=== PATIENT | female | born 1990 | race Caucasian/White ===

== ENCOUNTER 2018-08-28 00:28 | Inpatient (IN) | payer OTHER ==
[2018-08-28] MEDS ORDERED: PENDING SANTYL ORDER FOR WOUND CARE XX (03:30)
[2018-08-28] MEDS ORDERED: VANCOMYCIN IV PER PHARMACY XX ×2 (03:30→12:00)
[2018-08-28] MEDS ORDERED: ACETAMINOPHEN 325 MG TAB PO (03:30)
[2018-08-28] MEDS: SOD CHLORIDE 0.9% 1,000 ML IV ×3 (03:53→18:03)
[2018-08-28] MEDS: VANCOMYCIN HCL 1.25 GM in SOD CHLORIDE 0.9% 250 ML IVPB (04:25)
[2018-08-28] MEDS: PANTOPRAZOLE (EC) 40 MG TAB PO (06:09)
[2018-08-28 06:28] LABS: ADD MAN DIFF? NO
[2018-08-28 06:34] LABS: BASOPHILS % 0.3 % (0.0-2.0); EOSINOPHILS # 0.1 10^3/ul (0.0-0.5); EOSINOPHILS % 1.1 % (0.0-7.0); HEMATOCRIT 32.9 % (37.0-47.0); HEMOGLOBIN 10.5 g/dl (12.0-16.0); LYMPHOCYTES # 1.8 10^3/ul (0.8-2.9); LYMPHOCYTES % 14.7 % (15.0-51.0); MEAN CORPUSCULAR HEMOGLOBIN 26.3 pg (29.0-33.0); MEAN CORPUSCULAR HGB CONC 31.9 g/dl (32.0-37.0); MEAN CORPUSCULAR VOLUME 82.5 fl (82.0-101.0); MEAN PLATELET VOLUME 11.6 fl (7.4-10.4); MONOCYTE # 0.6 10^3/ul (0.3-0.9); MONOCYTES % 4.7 % (0.0-11.0); NEUTROPHIL # 9.5 10^3/ul (1.6-7.5); NEUTROPHILS % 78.7 % (39.0-77.0); PLATELET COUNT 243 10^3/UL (140-415); RED BLOOD COUNT 3.99 10^6/ul (4.20-5.40); RED CELL DISTRIBUTION WIDTH 16.5 % (11.5-14.5)
[2018-08-28 06:34] LABS: WHITE BLOOD COUNT 12.1 10^3/ul (4.8-10.8)
[2018-08-28 06:50] LABS: ALANINE AMINOTRANSFERASE 24 IU/L (13-69); ALBUMIN 3.7 g/dl (3.3-4.9); ALBUMIN/GLOBULIN RATIO 1.32; ALKALINE PHOSPHATASE 67 IU/L (42-121); ANION GAP 10 (5-13); ASPARTATE AMINO TRANSFERASE 19 IU/L (15-46); BILIRUBIN,INDIRECT 1.1 mg/dl (0-1.1); BILIRUBIN,TOTAL 1.1 mg/dl (0.2-1.3); BLOOD UREA NITROGEN 6 mg/dl (7-20); CALCIUM 8.9 mg/dl (8.4-10.2); CARBON DIOXIDE 25 mmol/L (21-31); CHLORIDE 103 mmol/L (97-110); CREATININE 0.46 mg/dl (0.44-1.00); Estimated GFR > 60 mL/min (>60); GLUCOSE 125 mg/dl (70-220); POTASSIUM 3.3 mmol/L (3.5-5.1); SODIUM 138 mmol/L (135-144); TOTAL PROTEIN 6.5 g/dl (6.1-8.1)
[2018-08-28] MEDS: ONDANSETRON 4 MG INJ IV (08:14)
[2018-08-28] MEDS: SOD CHLORIDE 0.9% 500 ML IV (08:24)
[2018-08-28] MEDS: CEFTRIAXONE 1 GM/50 ML (PMX) 50 ML IVPB (08:31)
[2018-08-28] MEDS ORDERED: QUETIAPINE 100 MG TAB PO (12:00)
[2018-08-28] MEDS ORDERED: traZODone 100 MG TAB PO (12:00)
[2018-08-28] MEDS: VANCOMYCIN 750 MG (PMX) 250 ML IVPB ×2 (13:38→22:20)
[2018-08-28] MEDS: NEOMYC/POLYMYX/BACIT 30 GM OINT TOP ×2 (14:23→20:30)
[2018-08-28] MEDS: LUBIPROSTONE 8 MCG CAPSULE PO ×2 (14:34→20:41)
[2018-08-28] MEDS: POTASSIUM CHLORIDE 20 MEQ POWDER FOR ORAL SOLN PO (14:34)
[2018-08-28] MEDS: POTASSIUM CHLORIDE (SR) 20 MEQ TAB PO (14:34)
[2018-08-28] MEDS: morphine 2 MG INJ IV (16:59)
[2018-08-28] MEDS: LORAZEPAM 2 MG INJ IV (20:30)
[2018-08-29] MEDS: PANTOPRAZOLE (EC) 40 MG TAB PO (05:29)
[2018-08-29 05:55] LABS: ADD MAN DIFF? NO
[2018-08-29 06:00] LABS: BASOPHILS % 0.4 % (0.0-2.0); EOSINOPHILS # 0.2 10^3/ul (0.0-0.5); HEMATOCRIT 34.2 % (37.0-47.0); LYMPHOCYTES # 1.8 10^3/ul (0.8-2.9); LYMPHOCYTES % 21.8 % (15.0-51.0); MEAN CORPUSCULAR HEMOGLOBIN 26.3 pg (29.0-33.0); MEAN CORPUSCULAR HGB CONC 32.2 g/dl (32.0-37.0); MEAN CORPUSCULAR VOLUME 81.6 fl (82.0-101.0); MEAN PLATELET VOLUME 11.2 fl (7.4-10.4); MONOCYTE # 0.5 10^3/ul (0.3-0.9); MONOCYTES % 5.9 % (0.0-11.0); NEUTROPHIL # 5.9 10^3/ul (1.6-7.5); NEUTROPHILS % 69.5 % (39.0-77.0); PLATELET COUNT 289 10^3/UL (140-415); RED BLOOD COUNT 4.19 10^6/ul (4.20-5.40); RED CELL DISTRIBUTION WIDTH 16.7 % (11.5-14.5)
[2018-08-29 06:00] LABS: WHITE BLOOD COUNT 8.4 10^3/ul (4.8-10.8)
[2018-08-29 06:44] LABS: ANION GAP 8 (5-13); BLOOD UREA NITROGEN 3 mg/dl (7-20); CARBON DIOXIDE 25 mmol/L (21-31); CHLORIDE 109 mmol/L (97-110); CREATININE 0.43 mg/dl (0.44-1.00); Estimated GFR > 60 mL/min (>60); GLUCOSE 106 mg/dl (70-220); POTASSIUM 3.9 mmol/L (3.5-5.1); SODIUM 142 mmol/L (135-144)
[2018-08-29] MEDS: SOD CHLORIDE 0.9% 1,000 ML IV ×4 (06:53→22:56)
[2018-08-29 07:28] LABS: VANCOMYCIN,TROUGH 7.6 ug/ml (10.0-20.0)
[2018-08-29] MEDS: CEFTRIAXONE 1 GM/50 ML (PMX) 50 ML IVPB (08:17)
[2018-08-29] MEDS: NEOMYC/POLYMYX/BACIT 30 GM OINT TOP ×2 (08:17→20:35)
[2018-08-29] MEDS: LUBIPROSTONE 8 MCG CAPSULE PO ×2 (08:20→20:35)
[2018-08-29] MEDS: VANCOMYCIN 750 MG (PMX) 250 ML IVPB (09:53)
[2018-08-29] MEDS: LORAZEPAM 0.5 MG TAB PO ×3 (10:30→20:33)
[2018-08-29] MEDS: morphine 2 MG INJ IV (11:19)
[2018-08-29] MEDS: DOCOSANOL 2 GM CREAM TOP ×2 (16:19→20:34)
[2018-08-29] MEDS: VANCOMYCIN 1 GM 250 ML IVPB (16:27)
[2018-08-29] MEDS: LORAZEPAM 2 MG INJ IV (17:11)
[2018-08-29] MEDS ORDERED: DOCOSANOL 2 GM CREAM TOP (21:00)
[2018-08-30] MEDS: VANCOMYCIN 1 GM 250 ML IVPB ×2 (00:18→09:08)
[2018-08-30] MEDS: SOD CHLORIDE 0.9% 1,000 ML IV (05:30)
[2018-08-30] MEDS: PANTOPRAZOLE (EC) 40 MG TAB PO (06:08)
[2018-08-30 06:51] LABS: ADD MAN DIFF? NO
[2018-08-30 06:57] LABS: WHITE BLOOD COUNT 9.8 10^3/ul (4.8-10.8)
[2018-08-30 06:57] LABS: BASOPHILS % 0.3 % (0.0-2.0); EOSINOPHILS # 0.2 10^3/ul (0.0-0.5); EOSINOPHILS % 1.8 % (0.0-7.0); HEMATOCRIT 36.2 % (37.0-47.0); HEMOGLOBIN 11.8 g/dl (12.0-16.0); LYMPHOCYTES # 2.1 10^3/ul (0.8-2.9); MEAN CORPUSCULAR HEMOGLOBIN 26.5 pg (29.0-33.0); MEAN CORPUSCULAR HGB CONC 32.6 g/dl (32.0-37.0); MEAN CORPUSCULAR VOLUME 81.3 fl (82.0-101.0); MEAN PLATELET VOLUME 11.1 fl (7.4-10.4); MONOCYTE # 0.6 10^3/ul (0.3-0.9); MONOCYTES % 6.2 % (0.0-11.0); NEUTROPHIL # 6.9 10^3/ul (1.6-7.5); NEUTROPHILS % 70.4 % (39.0-77.0); PLATELET COUNT 321 10^3/UL (140-415); RED BLOOD COUNT 4.45 10^6/ul (4.20-5.40); RED CELL DISTRIBUTION WIDTH 16.1 % (11.5-14.5)
[2018-08-30 07:45] LABS: ANION GAP 10 (5-13); BLOOD UREA NITROGEN 4 mg/dl (7-20); CALCIUM 9.1 mg/dl (8.4-10.2); CARBON DIOXIDE 25 mmol/L (21-31); CHLORIDE 108 mmol/L (97-110); CREATININE 0.49 mg/dl (0.44-1.00); Estimated GFR > 60 mL/min (>60); GLUCOSE 101 mg/dl (70-220); POTASSIUM 3.6 mmol/L (3.5-5.1); SODIUM 143 mmol/L (135-144)
[2018-08-30] MEDS: DOCOSANOL 2 GM CREAM TOP (08:36)
[2018-08-30] MEDS: NEOMYC/POLYMYX/BACIT 30 GM OINT TOP (08:38)
[2018-08-30] MEDS: LORAZEPAM 0.5 MG TAB PO (08:39)
[2018-08-30] MEDS: LUBIPROSTONE 8 MCG CAPSULE PO ×2 (08:39→08:41)
[2018-08-30] MEDS: CEFTRIAXONE 1 GM/50 ML (PMX) 50 ML IVPB (09:00)
[2018-08-30] MEDS: ONDANSETRON 4 MG INJ IV (09:07)
[2018-08-30] MEDS ORDERED: MUPIROCIN 2% 22 GM OINT TOP (21:00)
== END 2018-08-30 12:20 | disposition left against medical advice (07) | DRG 603 ==
LOC: PP2 00:28 → 5EC 08-29 10:48
DX: L03.113 Cellulitis of right upper limb (principal); R45.851 Suicidal ideations; N39.0 Urinary tract infection, site not specified; F17.210 Nicotine dependence, cigarettes, uncomplicated; K59.00 Constipation, unspecified; D64.9 Anemia, unspecified; E87.6 Hypokalemia; L02.413 Cutaneous abscess of right upper limb; F15.10 Other stimulant abuse, uncomplicated; F12.10 Cannabis abuse, uncomplicated; F11.10 Opioid abuse, uncomplicated; F32.9 Major depressive disorder, single episode, unspecified; N91.1 Secondary amenorrhea
CPT/HCPCS: 80048; 80053; 80202; 85025; 87081